=== PATIENT | female | born 1935 | race Caucasian/White ===

== ENCOUNTER 2019-04-01 12:07 | Inpatient (IN) | payer MEDICARE, BC ==
[2019-03-27 14:14] LABS: CLARITY,URINE CLOUDY (Clear); COLOR,URINE YELLOW (Yellow); GLUCOSE, URINE NEGATIVE (Neg); KETONES,URINE NEGATIVE (Neg); LEUKOCYTE ESTERASE ,URINE MODERATE (Neg); NITRITES, URINE NEGATIVE (Neg); OCCULT BLOOD,URINE LARGE (Neg); PROTEIN,URINE NEGATIVE (Neg); UA COLLECTION TYPE VOIDED; UROBILINOGEN,URINE 0.2 E.U/dL (0.2-1.0)
[2019-03-27 14:20] LABS: BACTERIA,URINE 3+ /HPF (Neg); MUCUS STRANDS NONE SEEN /LPF (Neg); RBC,URINE 20-50 /HPF (0-2); SQUAMOUS EPITHELIAL CELL,UR MODERATE /LPF (FEW); WBC CLUMPS,URINE MODERATE /HPF (NEGATIVE); WBC,URINE TNTC /HPF (0-4)
[2019-03-27 14:22] LABS: BASOPHILS % (AUTO) 0.7 % (0-1); EOSINOPHILS # (AUTO) 0.3 X10'3 (0-0.9); EOSINOPHILS % (AUTO) 4.3 % (0-6); LYMPHOCYTES # (AUTO) 1.5 X10'3 (1.1-4.8); MEAN CORPUSCULAR HEMOGLOBIN 30.3 PG (27.0-31.0); MEAN CORPUSCULAR HGB CONC 33.2 g/dL (33.0-36.5); MEAN CORPUSCULAR VOLUME 91.3 FL (78-98); MEAN PLATELET VOLUME 9.4 FL (7.4-10.4); MONOCYTES # (AUTO) 0.6 X10'3 (0-0.9); MONOCYTES % (AUTO) 9.5 % (2-12); NEUTROPHILS # (AUTO) 4.2 X10'3 (1.8-7.7); NEUTROPHILS % (AUTO) 63.5 % (42-75); PRE OP HEMATOCRIT 37.3 % (35.0-45.0); PRE OP HEMOGLOBIN 12.4 g/dL (12.0-16.0); PRE OP PLATELET COUNT 196 X10'3 (140-440); RED BLOOD COUNT 4.09 X10'6 (4.20-5.60); RED CELL DISTRIBUTION WIDTH 14.3 % (11.5-14.5)
[2019-03-27 14:34] LABS: PRE OP PROTIME 10.3 SECONDS (9.0-12.0)
[2019-03-27 14:48] LABS: ALBUMIN 3.3 G/DL (3.4-5.0); ALKALINE PHOSPHATASE 88 IU/L (46-116); BLOOD UREA NITROGEN 16 MG/DL (7-18); BUN/CREATININE RATIO 15.8 (6.6-38.0); CALCIUM 8.8 MG/DL (8.5-10.1); CHLORIDE 110 MMOL/L (99-107); CREATININE 1.01 MG/DL (0.40-0.90); PRE OP ALT 19 U/L (30-65); PRE OP ANION GAP 7 (8-16); PRE OP AST 19 U/L (10-37); PRE OP BILIRUB, TOTAL 0.4 MG/DL (0.0-1.0); PRE OP GLUCOSE 104 MG/DL (70-104); PRE OP POTASSIUM 3.9 MMOL/L (3.4-5.1); PRE OP SODIUM 144 MMOL/L (135-145); TOTAL CARBON DIOXIDE 27.3 MMOL/L (24-32); TOTAL PROTEIN 6.6 G/DL (6.4-8.2); eGFR 53 ML/MIN
[~2019-04-01] VITALS: Ht 154.9 cm; Wt 84.0 kg
[2019-04-01] VITALS (26 sets, daily range): BP systolic 107–140; BP diastolic 52–78
[~2019-04-01 12:07] MED LIST: BETA1TAB18 PO; ESTR10TA9 VG; LACT1CAP65 PO; LEVO100T9 PO; OMEP-50 PO; clindamycin-Cleocin 900mg/D5W 50 ML IV ONE; famotidine 20mg tablet PO ONE; gentamicin inj 410 MG in normal saline 100ml IV soln 89.75 ML IV ONE; ringers solution, lacted 1,000 ML IV SCH
[2019-04-01] MEDS ORDERED: BUPIVAcaine/PF 2.5 mg/ml (0.25%) 30ml vial ONE (13:55)
[2019-04-01] MEDS ORDERED: ringers solution, lacted 1,000 ML IV SCH (14:01)
[2019-04-01] MEDS ORDERED: HYDROmorphone inj. 0.5 MG/0.5 ML DISP.SYRIN IV PRN ×2 (14:05)
[2019-04-01] MEDS ORDERED: fentaNYL/PF 50MCG/1 ML 2ML syringe IV PRN ×2 (14:05)
[2019-04-01] MEDS ORDERED: hydrALAZINE 20mg/ml inj. IV PRN (14:05)
[2019-04-01] MEDS ORDERED: ondansetron/PF 4mg/2ml inj IV PRN ×2 (14:05→16:25)
[2019-04-01] MEDS ORDERED: labetalol 20mg/4ml (5mg/ml) syringe IV PRN (14:05)
[2019-04-01] MEDS ORDERED: rocuronium 10mg/ml inj IV ONE (14:10)
[2019-04-01] MEDS ORDERED: ondansetron/PF 4mg/2ml inj ONE (14:10)
[2019-04-01] MEDS ORDERED: etomidate 2mg/ml inj. ONE ×2 (14:10→14:15)
[2019-04-01] MEDS ORDERED: midazolam 2 mg/2 ml injection ONE (14:10)
[2019-04-01] MEDS ORDERED: fentaNYL/PF 50MCG/1 ML 2ML syringe ONE (14:10)
[2019-04-01] MEDS ORDERED: dexamethasone sod phosphate 4mg/ml inj. ONE (14:11)
[2019-04-01] MEDS ORDERED: glycopyrrolate 0.2mg/ml inj ONE (14:15)
[2019-04-01] MEDS ORDERED: neostigmine methylsulfate 1 MG/ML 10ml vial ONE (14:15)
[2019-04-01] MEDS ORDERED: sevoflurane 250ml liquid IH ONE (14:15)
[2019-04-01] MEDS ORDERED: scopolamine 1.5mg patch.TD72 TD ONE ×2 (14:30→14:33)
[2019-04-01] MEDS ORDERED: nitroGLYCERIN 0.4mg/hour patch TD ONE (14:30)
[2019-04-01] MEDS ORDERED: labetalol 20mg/4ml (5mg/ml) syringe IV ONE (14:41)
[2019-04-01] MEDS ORDERED: acetaminophen 1,000mg/100ml IV 100 ML IV ONE (14:43)
[2019-04-01] MEDS ORDERED: hydrALAZINE 20mg/ml inj. IV ONE (15:02)
[2019-04-01] MEDS ORDERED: ePHEDrine 50MG/ML INJ. ONE (15:22)
[2019-04-01] MEDS ORDERED: albumin (Human) 5% 250ml 250 ML IV ONE (15:35)
[2019-04-01] MEDS ORDERED: CADD PCA waste documentation MC PRN (16:25)
[2019-04-01] MEDS ORDERED: naloxone 0.4 mg/ml inj IV PRN (16:25)
--- NOTE | 2019-04-01 16:30 | NUR ---
Received from OR via BED, accompanied by Anesthesiologist DR RUIZ and report given by Anesthesiologist. PT VERY DROWSY, NO S/S OF DISTRESS/DISCOMFORT, ABDOMEN W/MIDLINE INCISION W/ISLAND DRSG CDI, 2 BANDAIDS PELVIC AREA CDI, TATUM CATHETER TO GRAVITY DRAINAGE W/YELLOW/PINK URINE. WARMING BLANKET APPLIED FOR TEMP OF 36.0. Addendum: 04/01/19 at 1648 by Anahi Barbosa RN Amended: Links added.
[2019-04-01] MEDS: HYDROmorphone/NS 1 mg/ml CADD 50 ML IV SCH ×4 (17:36→23:00)
--- NOTE | 2019-04-01 19:00 | NUR ---
Report called to receiving nurse. Transferred via BED, 1 BAG OF PERSONAL Belongings, 1 SMALL SUITCASE, CANE, GLASSES SENT W/PT TO ROOM 345A, RECEIVING RN AT BEDSIDE TO RECEIVE PT, PTS SON PRESENT. Special Issues communicated to receiving nurse. YES. Addendum: 04/01/19 at 2014 by Anahi Barbosa RN Amended: Links added.
[2019-04-01] MEDS: potassium CL 20mEq in D5-1/2NS 1,000 ML IV SCH (22:37)
[2019-04-02] MEDS: potassium CL 20mEq in D5-1/2NS 1,000 ML IV SCH ×3 (00:24→16:04)
[2019-04-02] MEDS: HYDROmorphone/NS 1 mg/ml CADD 50 ML IV SCH ×12 (01:00→23:00)
[2019-04-02 04:00] VITALS: BP 125/50
[2019-04-02 04:55] LABS: BASOPHILS % (AUTO) 0 % (0-1); EOSINOPHILS % (AUTO) 0 % (0-6); HEMATOCRIT 33.6 % (35.0-45.0); HEMOGLOBIN 11.4 g/dl (12.0-16.0); LYMPHOCYTES # (AUTO) 0.7 X10'3 (1.1-4.8); LYMPHOCYTES % (AUTO) 5.9 % (21-51); MEAN CORPUSCULAR HEMOGLOBIN 30.7 PG (27.0-31.0); MEAN CORPUSCULAR HGB CONC 33.8 g/dL (33.0-36.5); MEAN PLATELET VOLUME 9.1 FL (7.4-10.4); MONOCYTES # (AUTO) 0.5 X10'3 (0-0.9); MONOCYTES % (AUTO) 4.4 % (2-12); NEUTROPHILS # (AUTO) 10.1 X10'3 (1.8-7.7); NEUTROPHILS % (AUTO) 89.7 % (42-75); PLATELET COUNT 148 X10'3 (140-440); RED CELL DISTRIBUTION WIDTH 14.8 % (11.5-14.5); WHITE BLOOD COUNT 11.2 X10'3 (4.5-11.0)
--- NOTE | 2019-04-02 06:53 | NUR ---
Patient in room [facility] 345. I have received report from LOLI Mathew and had the opportunity to ask questions and assume patient care.
--- NOTE | 2019-04-02 06:53 | NUR ---
Patient in room [facility] 345. I have received report from Pat RN and had the opportunity to ask questions and assume patient care.
[2019-04-02 07:27] VITALS: BP 125/50
[2019-04-02 11:09] VITALS: BP 116/47
--- NOTE | 2019-04-02 12:05 | NUR ---
Problems reprioritized. Patient report given, questions answered & plan of care reviewed with SN. Joy
--- NOTE | 2019-04-02 12:07 | NUR ---
Patient in room [facility] 345. I have received report from Levi Student nurse and had the opportunity to ask questions and assume patient care.
[2019-04-02 13:10] VITALS: BP 123/61
--- NOTE | 2019-04-02 15:09 | NUR ---
Student documentation: I have reviewed all interventions, assessments performed and documented by Mckenzie MURRELL.
[2019-04-02] MEDS ORDERED: enoxaparin 80mg/0.8ml syringe SUBCUT ONE (16:25)
[2019-04-02 16:58] VITALS: BP 139/44
[2019-04-02 18:15] VITALS: BP 123/54
--- NOTE | 2019-04-02 18:35 | NUR ---
Dr. Ni called regarding pt's increased confusion. Pt is pulling at lines and is very agitated. Son at bedside. PCT assisting pt also. Awaiting callback from .
[2019-04-02] MEDS ORDERED: LORazepam 2 mg/ml vial IV PRN (18:50)
--- NOTE | 2019-04-02 18:53 | NUR ---
Patient in room [facility] 345. I have received report from LOLI Pantoja and had the opportunity to ask questions and assume patient care.
--- NOTE | 2019-04-02 18:57 | NUR ---
Dr. Ni informed of pt's confusion/hallucinations, MD ordered ativan and nighat lein.
--- NOTE | 2019-04-02 18:57 | NUR ---
Problems reprioritized. Patient report given, questions answered & plan of care reviewed with Nadya ENNIS.
[2019-04-03] MEDS: HYDROmorphone/NS 1 mg/ml CADD 50 ML IV SCH ×8 (01:00→15:00)
[2019-04-03] MEDS: potassium CL 20mEq in D5-1/2NS 1,000 ML IV SCH (02:44)
[2019-04-03 06:30] VITALS: BP 137/53
--- NOTE | 2019-04-03 06:50 | NUR ---
Patient in room [facility] 354. I have received report from LOLI Covington and had the opportunity to ask questions and assume patient care.
--- NOTE | 2019-04-03 07:02 | NUR ---
Problems reprioritized. Patient report given, questions answered & plan of care reviewed with LOLI Brandt.
[2019-04-03 08:32] LABS: BASOPHILS # (AUTO) 0.1 X10'3 (0-0.2); BASOPHILS % (AUTO) 0.5 % (0-1); EOSINOPHILS # (AUTO) 0.2 X10'3 (0-0.9); HEMATOCRIT 35.4 % (35.0-45.0); HEMOGLOBIN 11.7 g/dl (12.0-16.0); LYMPHOCYTES # (AUTO) 1.2 X10'3 (1.1-4.8); MEAN CORPUSCULAR HEMOGLOBIN 30.1 PG (27.0-31.0); MEAN CORPUSCULAR HGB CONC 33.1 g/dL (33.0-36.5); MEAN CORPUSCULAR VOLUME 91.1 FL (78-98); MEAN PLATELET VOLUME 10.5 FL (7.4-10.4); NEUTROPHILS # (AUTO) 14.3 X10'3 (1.8-7.7); NEUTROPHILS % (AUTO) 85.5 % (42-75); PLATELET COUNT 220 X10'3 (140-440); RED BLOOD COUNT 3.88 X10'6 (4.20-5.60); WHITE BLOOD COUNT 16.7 X10'3 (4.5-11.0)
[2019-04-03 08:44] LABS: ALANINE AMINOTRANSFERASE 43 U/L (12-78); ALBUMIN 3.6 G/DL (3.4-5.0); ALKALINE PHOSPHATASE 72 IU/L (46-116); ANION GAP 5 (8-16); ASPARTATE AMINO TRANSFERASE 41 U/L (10-37); BILIRUBIN,TOTAL 0.5 MG/DL (0.1-1.0); BLOOD UREA NITROGEN 13 MG/DL (7-18); BUN/CREATININE RATIO 13.3 (6.6-38.0); CHLORIDE 107 MMOL/L (99-107); CREATININE 0.98 MG/DL (0.40-0.90); GLUCOSE 113 MG/DL (70-104); SODIUM 142 MMOL/L (135-145); TOTAL CARBON DIOXIDE 30.2 MMOL/L (24-32); TOTAL PROTEIN 7.2 G/DL (6.4-8.2); eGFR 54 ML/MIN
[2019-04-03 08:46] LABS: POTASSIUM 4.6 MMOL/L (3.5-5.1)
[2019-04-03] MEDS: pantoprazole 40mg Tablet.DR PO SCH (09:53)
[2019-04-03] MEDS: levoTHYROXINE 100mcg tablet PO SCH (09:54)
[2019-04-03 11:00] VITALS: BP 151/73
[2019-04-03] MEDS ORDERED: HYDROcodone/acetaminophen 5mg/325mg tablet PO PRN (15:35)
[2019-04-03] MEDS: HYDROcodone/acetaminophen 10/325mg tab PO PRN ×2 (16:04→23:42)
[2019-04-03 18:00] VITALS: BP 146/44
--- NOTE | 2019-04-03 18:30 | NUR ---
Problems reprioritized. Patient report given, questions answered & plan of care reviewed with LOLI Arreaga.
--- NOTE | 2019-04-03 18:34 | NUR ---
Patient in room [facility] 354. I have received report from LOLI Brandt and had the opportunity to ask questions and assume patient care.
[2019-04-03 21:45] VITALS: BP 170/69
--- NOTE | 2019-04-03 23:00 | NUR ---
Patients bed alarm went off and when nursing educator Ja entered the patients room, the patient was found down on the ground. The patient was then helped up and brought back to bed with assistance with a walker by LOLI Causey, Ja, Unique Perera and Whitley. Patients Vital signs were taken and vital signs were stable and patient was alert and oriented. Patient stated that she was not confused when she got up out of bed and that she felt the urge to urinate and forgot she had a swan in place and when she got up, she tripped over her swan and fell and hit the right side of her jaw and hit her head on the ground. Upon assessment, it was noted that patient had a red knot on top of her head. Dr. Farooq was called at 2204 and did not answer his phone. Dr. Farooq was then called again at 2238 and he was notified of the patients fall. An order was given for CT of her head without contrast.
--- NOTE | 2019-04-03 23:00 | NUR ---
Patient brought down to CT
--- NOTE | 2019-04-03 23:34 | NUR ---
Patient back up from CT
[2019-04-04] VITALS: BP 153/62
[2019-04-04 05:51] LABS: BASOPHILS % (AUTO) 0.2 % (0-1); EOSINOPHILS % (AUTO) 0.4 % (0-6); HEMATOCRIT 33.7 % (35.0-45.0); HEMOGLOBIN 11.2 g/dl (12.0-16.0); LYMPHOCYTES # (AUTO) 1.1 X10'3 (1.1-4.8); LYMPHOCYTES % (AUTO) 9.1 % (21-51); MEAN CORPUSCULAR HEMOGLOBIN 30.3 PG (27.0-31.0); MEAN CORPUSCULAR HGB CONC 33.2 g/dL (33.0-36.5); MEAN CORPUSCULAR VOLUME 91.1 FL (78-98); MONOCYTES % (AUTO) 8.3 % (2-12); NEUTROPHILS # (AUTO) 9.5 X10'3 (1.8-7.7); PLATELET COUNT 175 X10'3 (140-440); RED CELL DISTRIBUTION WIDTH 15.2 % (11.5-14.5); WHITE BLOOD COUNT 11.6 X10'3 (4.5-11.0)
[2019-04-04 06:24] LABS: ALANINE AMINOTRANSFERASE 34 U/L (12-78); ALBUMIN/GLOBULIN RATIO 0.9 (1.1-1.5); ALKALINE PHOSPHATASE 65 IU/L (46-116); ANION GAP 5 (8-16); ASPARTATE AMINO TRANSFERASE 25 U/L (10-37); BILIRUBIN,TOTAL 0.6 MG/DL (0.1-1.0); BLOOD UREA NITROGEN 15 MG/DL (7-18); BUN/CREATININE RATIO 15.5 (6.6-38.0); CALCIUM 8.8 MG/DL (8.5-10.1); CHLORIDE 108 MMOL/L (99-107); CREATININE 0.97 MG/DL (0.40-0.90); GLUCOSE 94 MG/DL (70-104); MAGNESIUM 1.8 MG/DL (1.5-2.4); POTASSIUM 3.8 MMOL/L (3.5-5.1); SODIUM 142 MMOL/L (135-145); TOTAL CARBON DIOXIDE 28.6 MMOL/L (24-32); TOTAL PROTEIN 6.3 G/DL (6.4-8.2); eGFR 55 ML/MIN
--- NOTE | 2019-04-04 06:25 | NUR ---
Patient in room [facility] 354. I have received report from LOLI Arreaga and had the opportunity to ask questions and assume patient care.
[2019-04-04 06:30] VITALS: BP 159/57
--- NOTE | 2019-04-04 06:30 | NUR ---
Problems reprioritized. Patient report given, questions answered & plan of care reviewed with LOLI Brandt.
[2019-04-04] MEDS: levoTHYROXINE 100mcg tablet PO SCH (07:47)
[2019-04-04] MEDS: pantoprazole 40mg Tablet.DR PO SCH (07:47)
[2019-04-04] MEDS: HYDROcodone/acetaminophen 10/325mg tab PO PRN (07:47)
[2019-04-04 11:00] VITALS: BP 142/57
[2019-04-04 18:00] VITALS: BP 147/60
--- NOTE | 2019-04-04 18:45 | NUR ---
Problems reprioritized. Patient report given, questions answered & plan of care reviewed with Maribel RN & Marium RN.
--- NOTE | 2019-04-04 18:45 | NUR ---
Patient in room [facility] 354. I have received report from Karly ENNIS and had the opportunity to ask questions and assume patient care.
[2019-04-04] MEDS ORDERED: acetaminophen 325mg tablet PO PRN (19:00)
[2019-04-05] VITALS: BP 147/61
--- NOTE | 2019-04-05 06:05 | NUR ---
Problems reprioritized. Patient report given, questions answered & plan of care reviewed with Karly RN.
[2019-04-05 06:22] LABS: BASOPHILS % (AUTO) 0.3 % (0-1); EOSINOPHILS # (AUTO) 0.1 X10'3 (0-0.9); HEMATOCRIT 33.6 % (35.0-45.0); HEMOGLOBIN 11.4 g/dl (12.0-16.0); LYMPHOCYTES # (AUTO) 1.3 X10'3 (1.1-4.8); LYMPHOCYTES % (AUTO) 11.4 % (21-51); MEAN CORPUSCULAR HEMOGLOBIN 30.9 PG (27.0-31.0); MEAN CORPUSCULAR HGB CONC 33.9 g/dL (33.0-36.5); MEAN PLATELET VOLUME 9.4 FL (7.4-10.4); NEUTROPHILS # (AUTO) 8.8 X10'3 (1.8-7.7); NEUTROPHILS % (AUTO) 78.3 % (42-75); PLATELET COUNT 174 X10'3 (140-440); RED BLOOD COUNT 3.69 X10'6 (4.20-5.60); RED CELL DISTRIBUTION WIDTH 14.9 % (11.5-14.5); WHITE BLOOD COUNT 11.2 X10'3 (4.5-11.0)
[2019-04-05 06:30] VITALS: BP 128/54
[2019-04-05 06:30] LABS: ALANINE AMINOTRANSFERASE 25 U/L (12-78); ALBUMIN 2.6 G/DL (3.4-5.0); ALBUMIN/GLOBULIN RATIO 0.8 (1.1-1.5); ALKALINE PHOSPHATASE 64 IU/L (46-116); ANION GAP 8 (8-16); ASPARTATE AMINO TRANSFERASE 19 U/L (10-37); BILIRUBIN,TOTAL 0.7 MG/DL (0.1-1.0); BLOOD UREA NITROGEN 12 MG/DL (7-18); BUN/CREATININE RATIO 12.8 (6.6-38.0); CALCIUM 8.8 MG/DL (8.5-10.1); CHLORIDE 103 MMOL/L (99-107); CREATININE 0.94 MG/DL (0.40-0.90); GLUCOSE 100 MG/DL (70-104); MAGNESIUM 1.6 MG/DL (1.5-2.4); POTASSIUM 3.5 MMOL/L (3.5-5.1); SODIUM 139 MMOL/L (135-145); TOTAL CARBON DIOXIDE 27.7 MMOL/L (24-32); eGFR 57 ML/MIN
[2019-04-05] MEDS: levoTHYROXINE 100mcg tablet PO SCH (07:59)
[2019-04-05] MEDS: pantoprazole 40mg Tablet.DR PO SCH (07:59)
[2019-04-05] MEDS: acetaminophen 325mg tablet PO PRN (08:04)
[2019-04-05] MEDS ORDERED: ciprofloxacin lact 400MG/200ML 200 ML IV ONE (09:15)
[2019-04-05] MEDS ORDERED: ciprofloxacin 250mg tablet PO ONE (10:30)
[2019-04-05 11:00] VITALS: BP 103/52
[2019-04-05] MEDS: levoFLOXACIN 500mg tablet PO SCH (11:14)
[2019-04-05] MEDS: ibuprofen tablet 400 MG TABLET PO SCH ×2 (12:32→17:39)
--- NOTE | 2019-04-05 18:10 | NUR ---
Patient in room [facility] 354. I have received report from Karly ENNIS and had the opportunity to ask questions and assume patient care.
--- NOTE | 2019-04-05 18:25 | NUR ---
Problems reprioritized. Patient report given, questions answered & plan of care reviewed with LOLI Ochoa.
[2019-04-05 19:00] VITALS: BP 121/61
[2019-04-05] MEDS ORDERED: sulfamethoxazole/trimethoprim DS (800/160mg) tablet PO SCH (20:00)
[2019-04-06] VITALS: BP 132/60
[2019-04-06 06:31] LABS: BASOPHILS % (AUTO) 0.3 % (0-1); EOSINOPHILS # (AUTO) 0.5 X10'3 (0-0.9); EOSINOPHILS % (AUTO) 5.6 % (0-6); HEMATOCRIT 33.4 % (35.0-45.0); HEMOGLOBIN 11.4 g/dl (12.0-16.0); LYMPHOCYTES # (AUTO) 0.7 X10'3 (1.1-4.8); LYMPHOCYTES % (AUTO) 7.6 % (21-51); MEAN CORPUSCULAR HEMOGLOBIN 30.8 PG (27.0-31.0); MEAN CORPUSCULAR HGB CONC 34.1 g/dL (33.0-36.5); MEAN CORPUSCULAR VOLUME 90.4 FL (78-98); MEAN PLATELET VOLUME 9.3 FL (7.4-10.4); MONOCYTES # (AUTO) 0.9 X10'3 (0-0.9); MONOCYTES % (AUTO) 9.3 % (2-12); NEUTROPHILS # (AUTO) 7.5 X10'3 (1.8-7.7); NEUTROPHILS % (AUTO) 77.2 % (42-75); PLATELET COUNT 187 X10'3 (140-440); RED BLOOD COUNT 3.69 X10'6 (4.20-5.60); RED CELL DISTRIBUTION WIDTH 14.8 % (11.5-14.5); WHITE BLOOD COUNT 9.7 X10'3 (4.5-11.0)
--- NOTE | 2019-04-06 06:44 | NUR ---
Problems reprioritized. Patient report given, questions answered & plan of care reviewed with Scarlett ENNIS.
[2019-04-06 06:57] VITALS: BP 129/64
[2019-04-06 07:02] LABS: ALANINE AMINOTRANSFERASE 24 U/L (12-78); ALBUMIN 2.4 G/DL (3.4-5.0); ALBUMIN/GLOBULIN RATIO 0.6 (1.1-1.5); ALKALINE PHOSPHATASE 82 IU/L (46-116); ANION GAP 9 (8-16); ASPARTATE AMINO TRANSFERASE 18 U/L (10-37); BILIRUBIN,TOTAL 0.5 MG/DL (0.1-1.0); BLOOD UREA NITROGEN 20 MG/DL (7-18); BUN/CREATININE RATIO 18.3 (6.6-38.0); CALCIUM 8.5 MG/DL (8.5-10.1); CHLORIDE 103 MMOL/L (99-107); CREATININE 1.09 MG/DL (0.40-0.90); GLUCOSE 111 MG/DL (70-104); MAGNESIUM 1.7 MG/DL (1.5-2.4); POTASSIUM 3.2 MMOL/L (3.5-5.1); SODIUM 140 MMOL/L (135-145); TOTAL CARBON DIOXIDE 27.8 MMOL/L (24-32); TOTAL PROTEIN 6.1 G/DL (6.4-8.2); eGFR 48 ML/MIN
[2019-04-06] MEDS: pantoprazole 40mg Tablet.DR PO SCH (07:38)
[2019-04-06] MEDS: ibuprofen tablet 400 MG TABLET PO SCH ×3 (07:38→17:39)
[2019-04-06] MEDS: levoTHYROXINE 100mcg tablet PO SCH (07:38)
[2019-04-06] MEDS: K and/or MAG REPLACEMENT MC SCH ×2 (09:55→20:55)
[2019-04-06] MEDS ORDERED: potassium Cl 20 mEq SR tablet PO PRN (09:55)
[2019-04-06] MEDS ORDERED: potassium CL 10mEq/100ml bag 100 ML IV PRN (09:55)
[2019-04-06] MEDS: levoFLOXACIN 500mg tablet PO SCH (10:33)
[2019-04-06] MEDS: potassium Cl 20 mEq SR tablet PO PRN ×3 (10:33→20:55)
[2019-04-06 11:41] VITALS: BP 111/46
--- NOTE | 2019-04-06 16:01 | NUR ---
Initial: pt admitted colovesical fistula s/p sigmoid colon resection. Pt diet advanced to regular diet with good PO intake 50-75% avg meals, however last two meals have improved to 75-100%, meeting needs for geriatric age. LBM 04/04. Will continue to monitor. recommendations: 1. continue regular diet 2. bowel care as need 3. weight per rx Addendum: 04/06/19 at 1602 by Wing Rodolfo RAHMAN Amended: Links added. Addendum: 04/06/19 at [address] RD agree with note
--- NOTE | 2019-04-06 18:25 | NUR ---
Patient in room [facility] 354. I have received report from Scarlett ENNIS and had the opportunity to ask questions and assume patient care.
--- NOTE | 2019-04-06 18:32 | NUR ---
Problems reprioritized. Patient report given, questions answered & plan of care reviewed with Gabriela ENNIS.
[2019-04-06 19:00] VITALS: BP 125/66
[2019-04-06 20:49] VITALS: BP 125/66
[2019-04-06] MEDS: lactobacillus rhamnosus 10,000 MMU CELLS/CAPSULE PO SCH (20:55)
[2019-04-06] MEDS ORDERED: magnesium hydroxide 30ml (MOM) UD suspension PO ONE (21:45)
[2019-04-07] VITALS: BP 119/56
[2019-04-07] MEDS: acetaminophen 325mg tablet PO PRN (03:55)
[2019-04-07 06:10] LABS: BASOPHILS # (AUTO) 0.1 X10'3 (0-0.2); EOSINOPHILS # (AUTO) 0.5 X10'3 (0-0.9); EOSINOPHILS % (AUTO) 5.6 % (0-6); HEMATOCRIT 34.4 % (35.0-45.0); HEMOGLOBIN 11.8 g/dl (12.0-16.0); LYMPHOCYTES # (AUTO) 0.8 X10'3 (1.1-4.8); LYMPHOCYTES % (AUTO) 8.8 % (21-51); MEAN CORPUSCULAR HEMOGLOBIN 31.1 PG (27.0-31.0); MEAN CORPUSCULAR HGB CONC 34.4 g/dL (33.0-36.5); MEAN CORPUSCULAR VOLUME 90.4 FL (78-98); MEAN PLATELET VOLUME 9.4 FL (7.4-10.4); MONOCYTES # (AUTO) 0.8 X10'3 (0-0.9); MONOCYTES % (AUTO) 8.4 % (2-12); NEUTROPHILS # (AUTO) 7.1 X10'3 (1.8-7.7); NEUTROPHILS % (AUTO) 76.2 % (42-75); PLATELET COUNT 245 X10'3 (140-440); RED CELL DISTRIBUTION WIDTH 14.7 % (11.5-14.5); WHITE BLOOD COUNT 9.3 X10'3 (4.5-11.0)
--- NOTE | 2019-04-07 06:15 | NUR ---
Problems reprioritized. Patient report given, questions answered & plan of care reviewed with dara ENNIS.
--- NOTE | 2019-04-07 06:30 | NUR ---
Patient in room [facility] 354. I have received report from Gabriela ENNIS and had the opportunity to ask questions and assume patient care.
[2019-04-07 06:34] LABS: ALANINE AMINOTRANSFERASE 34 U/L (12-78); ALBUMIN 2.7 G/DL (3.4-5.0); ALBUMIN/GLOBULIN RATIO 0.7 (1.1-1.5); ALKALINE PHOSPHATASE 96 IU/L (46-116); ANION GAP 10 (8-16); ASPARTATE AMINO TRANSFERASE 34 U/L (10-37); BILIRUBIN,TOTAL 0.6 MG/DL (0.1-1.0); BLOOD UREA NITROGEN 23 MG/DL (7-18); CALCIUM 9.2 MG/DL (8.5-10.1); CHLORIDE 106 MMOL/L (99-107); CREATININE 1.35 MG/DL (0.40-0.90); GLUCOSE 115 MG/DL (70-104); MAGNESIUM 1.9 MG/DL (1.5-2.4); POTASSIUM 4.3 MMOL/L (3.5-5.1); SODIUM 141 MMOL/L (135-145); TOTAL CARBON DIOXIDE 24.8 MMOL/L (24-32); TOTAL PROTEIN 6.6 G/DL (6.4-8.2); eGFR 38 ML/MIN
[2019-04-07 06:59] VITALS: BP 135/68
[2019-04-07] MEDS: K and/or MAG REPLACEMENT MC SCH (07:26)
[2019-04-07] MEDS: ibuprofen tablet 400 MG TABLET PO SCH ×2 (07:32→11:45)
[2019-04-07] MEDS: pantoprazole 40mg Tablet.DR PO SCH (07:32)
[2019-04-07] MEDS: levoTHYROXINE 100mcg tablet PO SCH (07:32)
[2019-04-07] MEDS: lactobacillus rhamnosus 10,000 MMU CELLS/CAPSULE PO SCH (07:32)
--- NOTE | 2019-04-07 10:12 | NUR ---
Discharge instructions gone over with patient and sons Jonny and Ezekiel. López catheter care instructions gone over with pt and both sons Jonny and Ezekiel at bedside. Pt/family was given the opportunity to ask questions. López catheter changed to leg bag for ride home. Pt/family understands that pt needs to followup with Dr. Ni on Saturday to have F/C removed in office. Phone number for Dr. Ni office provided to pt/family to call and make appt. Dr. Ni stated over the phone that Rx was already called in to preferred pharmacy [facility] on [facility]. Panda Fuller also requesting to talk to supervisor food checkers and cashiers regarding pt's medical records. Ava supervisor food checkers and cashiers to speak with family.
[2019-04-07] MEDS: levoFLOXACIN 500mg tablet PO SCH (11:17)
[2019-04-07 11:28] VITALS: BP 104/51
--- NOTE | 2019-04-07 11:57 | NUR ---
Patient discharged with all belongings. W/C to front lobby. Son Jonny spoke with CM about getting HH set up on pts way out. CM to contact Jonny.
[2019-04-10] MEDS ORDERED: HYDR-3972 PO (15:02)
[2019-04-10] MEDS ORDERED: IBUP-1984 PO (15:03)
== END 2019-04-07 11:50 | disposition home health service (06) | DRG 653 ==
LOC: PAS IN 12:07 → EDSTATUS 15:00 → SUR 3N 19:28
PROVIDERS: ADMIT Surgery; ATTEND Surgery
PROC: 0DBN4ZZ Excision of Sigmoid Colon, Percutaneous Endoscopic Approach (ICD-10-PCS; principal; 2019-04-02)
PROC: 0TQB4ZZ Repair Bladder, Percutaneous Endoscopic Approach (ICD-10-PCS; 2019-04-02)
DX: N32.1 Vesicointestinal fistula (principal); K63.1 Perforation of intestine (nontraumatic); I12.9 Hypertensive chronic kidney disease with stage 1 through stage 4 chronic kidney disease, or unspecified chronic kidney disease; D49.0 Neoplasm of unspecified behavior of digestive system; N18.3 Chronic kidney disease, stage 3 (moderate); K57.90 Diverticulosis of intestine, part unspecified, without perforation or abscess without bleeding; E03.9 Hypothyroidism, unspecified; K66.0 Peritoneal adhesions (postprocedural) (postinfection); G47.30 Sleep apnea, unspecified; E66.9 Obesity, unspecified; Z68.35 Body mass index [BMI] 35.0-35.9, adult
CPT/HCPCS: 36415; 70450; 80053; 81001; 82948; 83735; 84443; 85025; 85610; 85730; 86885; 86900; 86901; 87077; 87081; 87088; 87186; 88307; 97110; 97116; 97162; 97530; A4215; A4355; A4618; A7000; C1758; G0378; J0131; J0360; J1100; J1170; J1580; J1650; J2060; J2250; J2405; J2710; J3010; J3480; J3490; J7120; P9045

== ENCOUNTER 2019-08-07 08:08 | Emergency (ER) | payer MEDICARE, BC ==
[~2019-08-07] VITALS: Ht 157.5 cm; Wt 75.0 kg
[~2019-08-07 08:08] MED LIST changes: +HYDR-3972 PO; +NYSPWD TP; +VANC5VIA PO; -clindamycin-Cleocin 900mg/D5W 50 ML IV ONE; -famotidine 20mg tablet PO ONE; -gentamicin inj 410 MG in normal saline 100ml IV soln 89.75 ML IV ONE; -ringers solution, lacted 1,000 ML IV SCH
[2019-08-07] MEDS ORDERED: normal saline 1000ML IV soln IVB ONE (08:20)
[2019-08-07] MEDS ORDERED: glycopyrrolate 0.2mg/ml inj IV ONE (08:30)
[2019-08-07 09:18] LABS: BASOPHILS % (AUTO) 0.2 % (0-1); EOSINOPHILS % (AUTO) 0 % (0-6); HEMATOCRIT 36.5 % (35.0-45.0); LYMPHOCYTES % (AUTO) 7.3 % (21-51); MEAN CORPUSCULAR HEMOGLOBIN 30.2 PG (27.0-31.0); MEAN CORPUSCULAR VOLUME 91.5 FL (78-98); MEAN PLATELET VOLUME 8.9 FL (7.4-10.4); MONOCYTES # (AUTO) 1.5 X10'3 (0-0.9); MONOCYTES % (AUTO) 10.8 % (2-12); NEUTROPHILS # (AUTO) 11.5 X10'3 (1.8-7.7); NEUTROPHILS % (AUTO) 81.7 % (42-75); PLATELET COUNT 168 X10'3 (140-440); RED BLOOD COUNT 3.98 X10'6 (4.20-5.60); RED CELL DISTRIBUTION WIDTH 14.8 % (11.5-14.5); WHITE BLOOD COUNT 14.1 X10'3 (4.5-11.0)
[2019-08-07 09:33] LABS: ANION GAP 12 (8-16); BLOOD UREA NITROGEN 17 MG/DL (7-18); CHLORIDE 99 MMOL/L (99-107); CREATININE 1.25 MG/DL (0.40-0.90); GLUCOSE 120 MG/DL (70-104); POTASSIUM 3.8 MMOL/L (3.5-5.1); SODIUM 135 MMOL/L (135-145); TOTAL CARBON DIOXIDE 24.4 MMOL/L (24-32)
[2019-08-07 09:34] LABS: ALANINE AMINOTRANSFERASE 13 U/L (12-78); ALBUMIN 2.6 G/DL (3.4-5.0); ALBUMIN/GLOBULIN RATIO 0.7 (1.1-1.5); ALKALINE PHOSPHATASE 73 IU/L (46-116); ASPARTATE AMINO TRANSFERASE 13 U/L (10-37); BILIRUBIN,TOTAL 0.6 MG/DL (0.1-1.0); BUN/CREATININE RATIO 13.6 (6.6-38.0); CALCIUM 8.1 MG/DL (8.5-10.1); MAGNESIUM 1.7 MG/DL (1.5-2.4); TOTAL PROTEIN 6.1 G/DL (6.4-8.2); eGFR 41 ML/MIN
--- NOTE | 2019-08-07 09:58 | NUR ---
Commode in at bedside. Attempt to collect stool sample. Pt has not previously had to urinate or have a BM.
--- NOTE | 2019-08-07 10:44 | NUR ---
stool sample collected and sent to lab.
[2019-08-07 10:49] VITALS: BP 107/58
--- NOTE | 2019-08-07 10:50 | NUR ---
Pt to CT. Tolerated procedure well.
[2019-08-07] MEDS ORDERED: VANC125C11 PO (11:35)
[2019-08-07] MEDS ORDERED: FIDA200T PO (11:37)
[2019-08-07 11:48] LABS: CLARITY,URINE CLEAR (Clear); COLOR,URINE YELLOW (Yellow); GLUCOSE, URINE NEGATIVE (Neg); KETONES,URINE TRACE mg/dl (Neg); LEUKOCYTE ESTERASE ,URINE NEGATIVE (Neg); NITRITES, URINE NEGATIVE (Neg); OCCULT BLOOD,URINE SMALL (Neg); PROTEIN,URINE 100 mg/dl (Neg); UROBILINOGEN,URINE 0.2 E.U/dL (0.2-1.0)
[2019-08-07 11:49] LABS: UA COLLECTION TYPE STRAIGHT CATH
--- NOTE | 2019-08-07 11:50 | NUR ---
PT CALLING SON FOR TRANSPORTATION HOME.
[2019-08-07 11:57] LABS: BACTERIA,URINE FEW /HPF (Neg); COARSE GRANULAR CAST 0-3 /LPF (NEGATIVE); MUCUS STRANDS FEW /LPF (Neg); RBC,URINE 0-2 /HPF (0-2); SQUAMOUS EPITHELIAL CELL,UR NONE SEEN /LPF (FEW)
[2019-08-07 11:58] LABS: C DIFF ANTIGEN POSITIVE (NEGATIVE); C DIFF SPECIMEN=DIARRHEA? ACCEPTABLE; C DIFFICILE TOXINS A&B POSITIVE (Neg)
== END 2019-08-07 12:50 | disposition home or self-care (01) ==
LOC: ER 08:08
DX: K51.00 Ulcerative (chronic) pancolitis without complications (principal); R53.1 Weakness; R19.7 Diarrhea, unspecified; R10.9 Unspecified abdominal pain; Z60.2 Problems related to living alone; Z88.0 Allergy status to penicillin; Z88.8 Allergy status to other drugs, medicaments and biological substances; Z79.899 Other long term (current) drug therapy
CPT/HCPCS: 36415; 71045; 74176; 80053; 81001; 83605; 83735; 84145; 85025; 85610; 87040; 87045; 87046; 87088; 87324; 87449; 93005; 96361; 96374; 99285; J7030; J3490